=== PATIENT | male | born 1940 | race Caucasian/White ===

== ENCOUNTER 2017-07-05 09:25 | Emergency (ER) | payer MEDICARE, OTHER ==
[~2017-07-05] VITALS: Ht 177.8 cm; Wt 55.4 kg
[~2017-07-05 09:25] MED LIST: ASPIRIN325 MG PO; BABY ASPIRIN81 MG PO; CELEBREX200 MG PO; CYANOCOBALAM1000 MCG IJ; DEPO-MEDROL40 MG/ML IM; DORYX100 MG; DOXYCYCLINE PO; E400400 UNIT OR; FISH OIL1000 M1 PO; LISINOPRIL5 MG PO; MEDDOSEPAK OR; MELOXICAM15 MG PO; MULTIVITAM10 OR; TRIAMCINOLON0.5 % EX; ZOSTAVAX IM; [UNRECOGNIZED DRUG - REMARK] IM; [UNRECOGNIZED DRUG - SUPPLY] IM
[2017-07-05 09:31] VITALS: BP 178/113
[2017-07-05] MEDS ORDERED: AMOXICILLIN500 MG PO (11:21)
== END 2017-07-05 11:52 | disposition home or self-care (01) ==
LOC: ED 09:25
PROC: 0HCQXZZ Extirpation of Matter from Finger Nail, External Approach (ICD-10-PCS; principal; 2017-07-05)
DX: S60.351A Superficial foreign body of right thumb, initial encounter (principal); W23.1XXA Caught, crushed, jammed, or pinched between stationary objects, initial encounter; Y93.89 Activity, other specified; Y92.009 Unspecified place in unspecified non-institutional (private) residence as the place of occurrence of the external cause

== ENCOUNTER → 2018-06-09 | Outpatient (REF) | payer MEDICARE, OTHER ==
[~2018-06-09] MED LIST changes: +AMOXICILLIN500 MG PO
[2018-06-09 13:10] LABS: HEMATOCRIT 40.6 % (39.0-50.0); HEMOGLOBIN 14.5 g/dl (14.0-18.0); IMMATURE GRANULOCYTES 0.3 % (0.0-5.0); MEAN CELL VOLUME 106.6 fL CALC (80.0-100.0); MEAN CORPUSCULAR HGB 38.1 pG CALC (26.0-32.0); MEAN CORPUSCULAR HGB CONC 35.7 g/L CALC (32.0-36.0); NEUT# 1.75 thou/uL (1.82-7.42); RED BLOOD COUNT 3.81 mill/uL (4.70-6.10)
[2018-06-09 13:42] LABS: ALBUMIN 3.9 g/dL (3.2-5.0); ALKALINE PHOSPHATASE 133 u/l (38-126); ANION GAP 13 (6-22 (CALC)); BILIRUBIN, TOTAL 0.9 mg/dL (0.0-1.4); BUN 10 mg/dL (8-23); BUN/CREATININE RATIO 18 (12-20 (CALC)); CARBON DIOXIDE 29 mmol/l (22-30); CHLORIDE 94 mmol/l (95-108); CREATININE 0.6 mg/dL (0.7-1.3); GFR > 60 ML/MIN (>=60 (CALC)); GFR FOR AFR.AMER. > 60 ML/MIN (>=60 (CALC)); POTASSIUM 4.5 mmol/l (3.5-5.1); SGOT/AST 42 u/l (19-48); SODIUM 132 mmol/l (137-146); TOTAL PROTEIN 6.4 g/dL (6.3-8.2)
== END | disposition home or self-care (01) ==
LOC: LAB 12:48
PROVIDERS: ATTEND Internal Medicine
DX: E83.110 Hereditary hemochromatosis (principal); R71.8 Other abnormality of red blood cells

== ENCOUNTER 2020-09-09 09:41 | Emergency (ER) | payer MEDICARE, OTHER ==
[~2020-09-09] VITALS: Ht 177.8 cm; Wt 56.8 kg
[2020-09-09 11:34] LABS: HEMATOCRIT 36.8 % (39.0-50.0); HEMOGLOBIN 12.9 g/dl (14.0-18.0); IMMATURE GRANULOCYTES 0.2 % (0.0-5.0); MEAN CELL VOLUME 105.1 fL CALC (80.0-100.0); MEAN CORPUSCULAR HGB 36.9 pG CALC (26.0-32.0); MEAN CORPUSCULAR HGB CONC 35.1 g/dL CAL (32.0-36.0); NEUT# 3.24 thou/uL (1.82-7.42); RED BLOOD COUNT 3.5 mill/uL (4.70-6.10); RED CELL DISTRI WIDTH 13.2 % (11.5-15.5)
[2020-09-09 11:48] LABS: ALBUMIN 4.4 g/dL (3.2-5.0); ALKALINE PHOSPHATASE 155 u/l (38-126); ANION GAP 12 (6-22 (CALC)); BILIRUBIN, TOTAL 0.8 mg/dL (0.0-1.4); BUN 8 mg/dL (8-23); BUN/CREATININE RATIO 15 (12-20 (CALC)); CARBON DIOXIDE 29 mmol/l (22-30); CHLORIDE 92 mmol/l (95-108); CREATININE 0.5 mg/dL (0.7-1.3); GFR > 60 ML/MIN (>=60 (CALC)); GFR FOR AFR.AMER. > 60 ML/MIN (>=60 (CALC)); POTASSIUM 4.6 mmol/l (3.5-5.1); SGOT/AST 47 u/l (19-48); SODIUM 129 mmol/l (137-146); TOTAL PROTEIN 7.4 g/dL (6.3-8.2)
[2020-09-09 11:55] LABS: ACT PARTIAL THROMBO TIME 29.6 SECONDS (20.0-32.5); PROTHROMBIN TIME 10.1 SECONDS (9.0-12.5)
[2020-09-09 12:31] VITALS: BP 160/123
== END 2020-09-09 12:31 | disposition left against medical advice (07) ==
LOC: ED 09:41
PROVIDERS: Student in an Organized Health Care Education/Training Program
DX: M54.6 Pain in thoracic spine (principal); R23.8 Other skin changes; Z91.19 Patient's noncompliance with other medical treatment and regimen; I10 Essential (primary) hypertension; F17.210 Nicotine dependence, cigarettes, uncomplicated

== ENCOUNTER 2020-12-21 | Inpatient (IN) | payer MEDICARE, OTHER ==
--- NOTE | 2020-12-20 18:20 | NUR ---
PT TO ROOM 6 VIA WHEELCHAIR.
--- NOTE | 2020-12-20 20:03 | NUR ---
JOSE M AT THE BEDSIDE RESTING COMFORTABLY
[2020-12-20 20:18] LABS: HEMOGLOBIN 11.1 g/dl (14.0-18.0); IMMATURE GRANULOCYTES 0.2 % (0.0-5.0); MEAN CELL VOLUME 109.6 fL CALC (80.0-100.0); MEAN CORPUSCULAR HGB 36.9 pG CALC (26.0-32.0); MEAN CORPUSCULAR HGB CONC 33.6 g/dL CAL (32.0-36.0); NEUT# 12.86 thou/uL (1.82-7.42); RED BLOOD COUNT 3.01 mill/uL (4.70-6.10); RED CELL DISTRI WIDTH 14.4 % (11.5-15.5)
[2020-12-20 20:53] LABS: URINE BILIRUBIN - DIPSTICK NEGATIVE (NEGATIVE); URINE BLOOD DIPSTICK NEGATIVE (NEGATIVE); URINE COLOR YELLOW; URINE GLUCOSE - DIPSTICK NEGATIVE (NEGATIVE); URINE KETONE TRACE mg/dL (NEGATIVE); URINE LEUK ESTERASE NEGATIVE (NEGATIVE); URINE PH 6.5 (4.5-8.0); URINE PROTEIN - DIPSTICK NEGATIVE (NEG-TRACE); URINE SPECIFIC GRAVITY 1.025
[2020-12-20 20:54] LABS: URINE NITRITE - DIPSTICK NEGATIVE (Negative)
[2020-12-20 21:12] LABS: ALBUMIN 4.3 g/dL (3.2-5.0); ALKALINE PHOSPHATASE 132 u/l (38-126); ANION GAP 10 (6-22 (CALC)); BUN 21 mg/dL (8-23); BUN/CREATININE RATIO 35 (12-20 (CALC)); CARBON DIOXIDE 33 mmol/l (22-30); CHLORIDE 94 mmol/l (95-108); CREATININE 0.6 mg/dL (0.7-1.3); GFR > 60 ML/MIN (>=60 (CALC)); GFR FOR AFR.AMER. > 60 ML/MIN (>=60 (CALC)); LIPASE 24 u/l (23-300); SGOT/AST 48 u/l (19-48); SODIUM 134 mmol/l (137-146); TOTAL PROTEIN 7.4 g/dL (6.3-8.2)
[2020-12-20 21:14] LABS: POTASSIUM 3.4 mmol/l (3.5-5.1)
[2020-12-20 21:15] LABS: ACT PARTIAL THROMBO TIME 22.7 SECONDS (20.0-32.5); INTERNATIONAL NORMALIZED RATIO 1.1 RATIO (0.7-1.3)
--- NOTE | 2020-12-20 22:08 | NUR ---
PATIENT REPORT GIVEN TO LEI MAKER
--- NOTE | 2020-12-20 23:00 | NUR ---
ADVISED FAMILY OF WAIT TIME.
--- NOTE | 2020-12-21 00:30 | NUR ---
PT UP TO BS TO VOID.
--- NOTE | 2020-12-21 01:17 | NUR ---
REPORT TO LUCILA CALL/MED-SURG. TO FLOOR WITH 02/POCKET MONITOR AND ROCEPHIN INFUSING.
--- NOTE | 2020-12-21 01:18 | NUR ---
TO ROOM 273 VIA STRETCHER. WITH MONITOR/IV ANTIBIOTICS
[2020-12-21 01:22] VITALS: BP 172/101
--- NOTE | 2020-12-21 01:23 | NUR ---
PT ARRIVED TO MED SURG ROOM 273 VIA STRETCHER FROM ER WITH BLEONGINS WITH PT, PT IS HERE FOR WEAKNESS AND FREQUENT FALLS, WHEN ASKED WHAT HE THINKS IS CAUSING THE WEAKNESS AND FALLS PT SAYS THATS WHAT YA'LL NEE TO FIND OUT.20G IV INTACT IN L AC, PT HAS POOR/LIMITED ROM WITH BLE STATES HIS SHOUILDER BLADES HURT HORRIBLY AND HAVE FOR MONTHS, WHEN ASKED IF THEY ARE FROM FALLING HE STATES NO.LUNGS COARS WITH MOIST COUGH NO SPUTUM WITNESSED BU THIS NURSE PT STATES ITS PRODUCTIVE SOMETIMES, PT IS WEARING O2 AT 2L VIA NC WHICH HE WEARS AT HOME WELL PER REPORT; SKIN INTACT BUT SOME ECCHYMOTIC AREAS NOTED TO BUE, NO PRESSURE BREAKDWON NOTED, ORIENTED TO ROOM AND UNIT, CALL MASTERSON WITHIN REACH, SAFETY MEASURES INTRODUCED; INCLUDING NOT GETTING OUT OF BED WITHOUT ASSISTANCE, PT VERBALIZES UNDERSTANDING. WILL CONTINUE TO MONITOR.
--- NOTE | 2020-12-21 02:25 | NUR ---
IV ABT FINISHING, IVF INFUSING ORDERED AND PT MEDICATED FOR C/O SHOULDER BLADE PAIN, REPOSITIONED FOR COMFORT, ALL NEEDED ITEMS WITHIN REACH, WILL CONTINUE TO MONITOR,
[2020-12-21 04:00] VITALS: BP 137/89
--- NOTE | 2020-12-21 04:16 | NUR ---
PT RESTING WITH EYES CLOSED NO S/S OF DISTRESS NOTED, COMFOR MEASURES PROVIDED, WILL CONTINUE TO MONITOR
[2020-12-21 05:41] LABS: HEMATOCRIT 29.6 % (39.0-50.0); HEMOGLOBIN 9.9 g/dl (14.0-18.0); IMMATURE GRANULOCYTES 0.4 % (0.0-5.0); MEAN CORPUSCULAR HGB 36.8 pG CALC (26.0-32.0); MEAN CORPUSCULAR HGB CONC 33.4 g/dL CAL (32.0-36.0); NEUT# 9.05 thou/uL (1.82-7.42); RED BLOOD COUNT 2.69 mill/uL (4.70-6.10); RED CELL DISTRI WIDTH 14.2 % (11.5-15.5)
--- NOTE | 2020-12-21 06:26 | NUR ---
Patient is screened for rehab intervention and PT OT and ST consultsa re recommended
[2020-12-21] MEDS ORDERED: LOSARTAN POTASS50 MG PO (07:20)
[2020-12-21] MEDS ORDERED: DECADRON4 MG PO (07:20)
[2020-12-21] MEDS ORDERED: CYANOCOBAL1000 MCG/M IJ (07:21)
[2020-12-21 07:37] VITALS: BP 151/93
--- NOTE | 2020-12-21 07:45 | NUR ---
ASSESSMENT IS COMPLETED: IV SITE IS FREE FROM REDNESS OR EDEMA. HR IS REG,PULSES ARE STRONG X4, ABD IS SOFT WITH ACTIVE BS. BREATH SOUNDS ARE CLEAR BILATERALLY,TELE MONITOR IN PLACE.
--- NOTE | 2020-12-21 09:20 | NUR ---
DR CHIRINOS INTO VISIT WITH PT
--- NOTE | 2020-12-21 09:23 | NUR ---
Pt screened by BAG PATCHER. Further evaluation recommended if in agreement with medical.
[2020-12-21 10:30] VITALS: BP 142/81
--- NOTE | 2020-12-21 12:10 | NUR ---
PTIS SITTING IN BED WITH NO DISTRESS NOTED.HAS A COUGH.CONTINUE TO OBSERVE AND MONITOR.
[2020-12-21 15:00] VITALS: BP 143/83
--- NOTE | 2020-12-21 16:11 | NUR ---
PT IS VISITING WITH FAMILY. NO DISTRESS NOTED. IV SITE IS FREE FROMREDNESS OR EDEMA.
[2020-12-21 19:00] VITALS: BP 145/89
--- NOTE | 2020-12-21 20:00 | NUR ---
PHYSICAL ASSESMENT COMPLETE. PT CURRENTLY DENIES PAIN OR DISCOMFORT. SCHEDULED MEDICATIONS AND PRN MEDICATION ADMINISTERED, SEE E-MAR. PT DENIES ANY NEEDS AT THIS TIME. PLAN OF CARE REVIEWED, PT DENIES QUESTIONS, VERBALIZES UNDERSTANDING. ITEMS WITHIN REACH, BED LOCKED IN LOW POSITION W/ BEDRAILS UP X2. CALL MASTERSON WITHIN REACH, AGREES TO CALL PRN.
--- NOTE | 2020-12-21 20:04 | NUR ---
PHYSICAL ASSESMENT COMPLETE. PT C/O SOFPAIN PAIN AND DISCOMFORT. SCHEDULED MEDICATIONS AND PRN MEDICATION ADMINISTERED, SEE E-MAR. PT DENIES ANY NEEDS AT THIS TIME. PLAN OF CARE REVIEWED, PT DENIES QUESTIONS, VERBALIZES UNDERSTANDING. ITEMS WITHIN REACH, BED LOCKED IN LOW POSITION W/ BEDRAILS UP X2. CALL MASTERSON WITHIN REACH, AGREES TO CALL PRN.
[2020-12-22] VITALS: BP 149/90
--- NOTE | 2020-12-22 | NUR ---
PT LAYING IN BED WITH EYES CLOSED, APPEARS TO BE SLEEPING, APPEARS COMFORTABLE AND IN NO DISTRESS. RESPIRATIONS REGULAR AND UNLABORED. ITEMS REMAIN WITHIN REACH, CALL MASTERSON REMAINS WITHIN REACH. BED REMAINS LOCKED AND IN LOW POSITION WITH BEDRAILS UP X2. WILL CONTINUE TO MONITOR.
[2020-12-22 04:00] VITALS: BP 168/96
--- NOTE | 2020-12-22 04:53 | NUR ---
PTS BP 168/96. PTS COZAAR ADMINISTERED EARLY. WILL CONTINUE TO MONITOR.
[2020-12-22 05:43] LABS: HEMATOCRIT 29.2 % (39.0-50.0); HEMOGLOBIN 9.6 g/dl (14.0-18.0); MEAN CELL VOLUME 113.2 fL CALC (80.0-100.0); MEAN CORPUSCULAR HGB 37.2 pG CALC (26.0-32.0); MEAN CORPUSCULAR HGB CONC 32.9 g/dL CAL (32.0-36.0); RED BLOOD COUNT 2.58 mill/uL (4.70-6.10); RED CELL DISTRI WIDTH 14.1 % (11.5-15.5)
[2020-12-22 05:56] LABS: BUN 17 mg/dL (8-23); BUN/CREATININE RATIO 32 (12-20 (CALC)); CARBON DIOXIDE 33 mmol/l (22-30); CHLORIDE 99 mmol/l (95-108); CREATININE 0.5 mg/dL (0.7-1.3); GFR > 60 ML/MIN (>=60 (CALC)); GFR FOR AFR.AMER. > 60 ML/MIN (>=60 (CALC)); MAGNESIUM 1.9 mg/dL (1.6-2.3); SODIUM 135 mmol/l (137-146)
[2020-12-22 06:00] LABS: ANION GAP 7 (6-22 (CALC)); POTASSIUM 4.3 mmol/l (3.5-5.1)
--- NOTE | 2020-12-22 07:10 | NUR ---
REPORT RECEIVED FROM LUCILA LEE
[2020-12-22 07:45] VITALS: BP 163/85
--- NOTE | 2020-12-22 08:16 | NUR ---
Pt screened by d/t nutritional assessment positive for difficulties chewing or swallowing. Pt may benefit from a swallow evaluation given shortness of breath and new onset of lung CA.
--- NOTE | 2020-12-22 08:30 | NUR ---
PT OOB RESTING IN RECLINER,A&O X3;VS OBTAINED AND ASSESSMENT COMPLETED;PT REPORTS BILATERAL SHOULDER PAIN RATING 10/10 ON THE PAIN SCALE AND REQUESTS PAIN MEDICATION,PT MEDICATED WITH PRN ULTRAM 50MG PO AT THIS TIME;WHILE ADMINISTERING PAIN MEDICATION IT WAS NOTED THAT PT HAS DIFFICULTY SWALLOWING, MELIA ANRP NOTIFIED;RESPIRATIONS SHALLOW ON O2 @ 2L VIA NC, DIMINISHED LUNG SOUNDS NOTED;ABDOMEN SOFT ON PALPATION AND ACTIVE IN ALL 4 QUADRANTS;WEAK PEDAL PULSES;SKIN INTACT;TELE MONITORING IN PLACE;#20G TO LAC INFUSING NS @ 50ML/HR,SITE APPEARS HEALTHY;PT DENIES ANY ADDITIONAL NEEDS AT THIS TIME AND IS ENCOURAGED TO CALL FOR ASSISTANCE IF NEEDED;FALL PRECAUTIONS IN PLACE WITH CALL LIGHT IN REACH;WILL CONTINUE TO MONITOR
--- NOTE | 2020-12-22 09:44 | NUR ---
AT BEDSIDE DISCUSSING POC.
--- NOTE | 2020-12-22 10:27 | NUR ---
SPEECH AT BEDSIDE.
[2020-12-22 10:52] VITALS: BP 159/93
--- NOTE | 2020-12-22 11:40 | NUR ---
PT RESTING IN SEMI FOWLERS POSITION;RESPIRATIONS REMAIN EVEN AND UNLABORED ON O2 @ 2L VIA NC;PT DENIES ANY CURRENT PAIN OR DISCOMFORTS;TELE MONITORING IN PLACE;IV SITE PATENT;PT DENIES ANY ADDITIONAL NEEDS AND IS ENCOURAGED TO CALL FOR ASSISTANCE IF NEEDED;FALL PRECAUTIONS IN PLACE WITH CALL LIGHT IN REACH;WILL CONTINUE TO MONITOR
--- NOTE | 2020-12-22 13:50 | NUR ---
PT TRANSPORTED TO [facility] IN STABLE CONDITION VIA WHEELCHAIR ACCOMPANIED BY LUCILA HANSON
--- NOTE | 2020-12-22 14:11 | NUR ---
PT RETURNED BACK TO MED/SURG ROOM 273 IN STABLE CONDITION VIA WHEELCHAIR ACCOMPANIED BY LUCILA HANSON
--- NOTE | 2020-12-22 14:20 | NUR ---
PT RESTING IN BED WITH SON AT BEDSIDE;PT REPORTS BACK AND SHOULDER PAIN RATING 3/10 ON THE PAIN SCALE AND REQUESTS PAIN MEDICATION, PT MEDICATED WITH PRN MORPHINE 2MG SLOW IVP AT THIS TIME;PT DENIES ANY ADDITIONAL NEEDS;WILL CONTINUE TO MONITOR
[2020-12-22 15:16] VITALS: BP 138/82
--- NOTE | 2020-12-22 15:40 | NUR ---
PT RESTING IN SEMI FOWLERS POSITION;RESPIRATIONS EVEN AND UNLABORED ON O2 @ 2L VIA NC;PT REPORTS PRN MORPHINE ADMINISTRATION EFFECTIVE;TELE MONITORING IN PLACE;IV SITE PATENT;PT DENIES ANY ADDITIONAL NEEDS AND IS ENCOURAGED TO CALL FOR ASSISTANCE IF NEEDED;FALL PRECAUTIONS REMAIN IN PLACE WITH BED IN THE LOWEST POSITION AND CALL LIGHT IN REACH;WILL CONTINUE TO MONITOR
[2020-12-22 19:45] VITALS: BP 187/97
--- NOTE | 2020-12-22 20:00 | NUR ---
PHYSICAL ASSESMENT COMPLETE. PT PROVIDED MORPHINE FOR PAIN AND DISCOMFORT. SCHEDULED MEDICATIONS AND PRN MEDICATION ADMINISTERED, SEE E-MAR. PT DENIES ANY NEEDS AT THIS TIME. PLAN OF CARE REVIEWED, PT DENIES QUESTIONS, VERBALIZES UNDERSTANDING. ITEMS WITHIN REACH, BED LOCKED IN LOW POSITION W/ BEDRAILS UP X2. CALL MASTERSON WITHIN REACH, AGREES TO CALL PRN.
[2020-12-23 00:20] VITALS: BP 154/94
[2020-12-23 04:00] VITALS: BP 190/99
--- NOTE | 2020-12-23 04:15 | NUR ---
PT REMOVED HIS IV. BLOOD SOAKED THE SHEETS. BEDDING CHANGED, INSERTED NEW IV IN RAC. DATED AND TIMED. PT TOLERATED PROCEDURE WELL.
[2020-12-23 05:10] LABS: HEMATOCRIT 31.4 % (39.0-50.0); HEMOGLOBIN 10.3 g/dl (14.0-18.0); IMMATURE GRANULOCYTES 0.7 % (0.0-5.0); MEAN CELL VOLUME 113.4 fL CALC (80.0-100.0); MEAN CORPUSCULAR HGB 37.2 pG CALC (26.0-32.0); MEAN CORPUSCULAR HGB CONC 32.8 g/dL CAL (32.0-36.0); NEUT# 10.91 thou/uL (1.82-7.42); RED BLOOD COUNT 2.77 mill/uL (4.70-6.10); RED CELL DISTRI WIDTH 13.9 % (11.5-15.5)
[2020-12-23 06:08] LABS: ALBUMIN 3.7 g/dL (3.2-5.0); ALKALINE PHOSPHATASE 113 u/l (38-126); ANION GAP 9 (6-22 (CALC)); BILIRUBIN, TOTAL 0.8 mg/dL (0.0-1.4); BUN 18 mg/dL (8-23); BUN/CREATININE RATIO 36 (12-20 (CALC)); CARBON DIOXIDE 32 mmol/l (22-30); CHLORIDE 100 mmol/l (95-108); CREATININE 0.5 mg/dL (0.7-1.3); GFR > 60 ML/MIN (>=60 (CALC)); GFR FOR AFR.AMER. > 60 ML/MIN (>=60 (CALC)); POTASSIUM 4.2 mmol/l (3.5-5.1); SGOT/AST 35 u/l (19-48); SODIUM 137 mmol/l (137-146); TOTAL PROTEIN 6.4 g/dL (6.3-8.2)
--- NOTE | 2020-12-23 07:10 | NUR ---
REPORT RECEIVED FROM LUCILA LEE
[2020-12-23 07:45] VITALS: BP 178/90
--- NOTE | 2020-12-23 08:30 | NUR ---
PT RESTING IN SEMI FOWLERS POSITION,A&O X3;VS OBTAINED AND ASSESSMENT COMPLETED;PT REPORTS SHOULDER PAIN RATING 7/10 ON THE PAIN SCALE AND REQUESTS PRN PAIN MEDICATION, PT MEDICATED WITH MORPHINE 2MG SLOW IVP AT THIS TIME;RESPIRATIONS SHALLOW ON O2 @ 2L VIA NC, DIMINISHED LUNG SOUNDS AND NON-PRODUCTIVE COUGH;ABDOMEN SOFT ON PALPATION AND ACTIVE IN ALL 4 QUADRANTS;SKIN INTACT;TELE MONITORING IN PLACE;#22G TO RAC INFUSING NS @ 50ML/HR,SITE APPEARS HEALTHY;PT DENIES ANY ADDITIONAL NEEDS AT THIS TIME AND IS ENCOURAGED TO CALL FOR ASSISTANCE IF NEEDED;FALL PRECAUTIONS IN PLACE WITH BED IN THE LOWEST POSITION;PT ENCOURAGED TO CALL FOR ASSISTANCE IF NEEDED;CALL LIGHT IN REACH;WILL CONTINUE TO MONITOR
[2020-12-23 09:02] VITALS: BP 157/87
--- NOTE | 2020-12-23 09:18 | NUR ---
AT BEDSIDE DISCUSSING POC.
--- NOTE | 2020-12-23 11:00 | NUR ---
PT RESTING IN SEMI FOWLERS POSITION WITH SON AT BEDSIDE;RESPIRATIONS EVEN AND UNLABORED ON O2 @ 2L VIA NC;PT DENIES ANY CURRENT PAIN BUT DOES REQUEST A NICOTINE PATCH, PATCH PROVIDED PER REQUEST;TELE MONITORING IN PLACE;IV SITE PATENT INFUSING NS PER ORDER;PT DENIES ANY ADDITIONAL NEEDS AND IS ENCOURAGED TO CALL FOR ASSISTANCE IF NEEDED;CALL LIGHT IN REACH;WILL CONTINUE TO MONITOR
--- NOTE | 2020-12-23 11:10 | NUR ---
PT TRANSPORTED TO RADIOLOGY VIA WHEELCHAIR ACCOMPANIED BY SPEECH THERAPY.
[2020-12-23 11:12] VITALS: BP 159/86
--- NOTE | 2020-12-23 11:30 | NUR ---
PT TRANSPORTED BACK TO MED/SURG ROOM 273 IN STABLE CONDITION ACCOMPANIED BY SPEECH THERAPY.
--- NOTE | 2020-12-23 11:35 | NUR ---
SPOKE WITH DOTTIE FROM [facility], PER DOTTIE A HOSPICE NURSE SHOULD BE OUT TO [facility] AT APPROX 1500 TO SPEAK WITH PT.
--- NOTE | 2020-12-23 12:30 | NUR ---
PT REPORTS SHOULDER PAIN RATING 7/10 ON THE PAIN SCALE AND REQUESTS PAIN MEDICATION. PT MEDICATED WITH PRN MORPHINE 2MG SLOW IVP AT THIS TIME.
--- NOTE | 2020-12-23 12:38 | NUR ---
Called Robbin Billings to discuss patient and modified barium swallow study results. This clinician had a lengthy discussion with patient and patient's son to discuss goals of care, as patient aspirated all consistencies on modified barium swallow study. Patient and patient's son understand and are accepting the risk of aspiration. Patient reported he does not want to eat solid foods that requiring chewing, but would prefer to be on thin liquids vs. thickened liquids. Thin liquids are likely most appropriate for this case, as they are easier to eject from the airway. Medical team in agreement with placing patient on pureed solids and thin liquids. AIR CONDITIONER INSTALLER HELPER will sign off at this time unless further education is needed.
--- NOTE | 2020-12-23 13:49 | NUR ---
PEREZ, HOSPICE NURSE AT BEDSIDE DISCUSSING POC WITH PT AND SON.
--- NOTE | 2020-12-23 14:16 | NUR ---
PT AND SON AGREE TO [facility]. NOTIFIED.AWAITING D/C ORDERS.
[2020-12-23 15:15] VITALS: BP 170/99
--- NOTE | 2020-12-23 16:00 | NUR ---
PT RESTING IN SEMI FOWLERS POSITION WITH SON AT BEDSIDE;RESPIRATIONS LABORED ON O2 @ 2L VIA NC;PT DENIES ANY CURRENT PAIN OR DISCOMFORTS;TELE MONITORING IN PLACE;IV SITE TO RAC INFUSING NS WITH EASE PER ORDER;PT TP BE TRANSPORTED TO [facility] AT [address]OX [address] VIA [facility], PT AND SON VERBALIZE UNDERSTANDING;PT DENIES ANY ADDITIONAL NEEDS AT THIS TIME;ENCOURAGED TO CALL FOR ASSISTANCE IF NEEDED;FALL PRECAUTIONS IN PLACE WITH CALL LIGHT IN REACH;WILL CONTINUE TO MONITOR
--- NOTE | 2020-12-23 16:20 | NUR ---
PT REPORTS SHOULDER PAIN RATING 10/10 ON THE PAIN SCALE AND REQUESTS PAIN MEDICATION, PT MEDICATED WITH MORPHINE 2MG SLOW IVP AT THIS TIME;PT DENIES ANY ADDITIONAL NEEDS;ENCOURAGED TO CALL FOR ASSISTANCE IF NEEDED;CALL LIGHT IN REACH;WILL CONTINUE TO MONITOR
--- NOTE | 2020-12-23 16:59 | NUR ---
Discharge instructions given. Patient verbalizes understanding of same. Discharged in stable condition via Medical Transport to *Other with *Other. All belongings sent with pt. PT TRANSPORTED TO [facility] IN STABLE CONDITION [facility]IA [facility].ALL BELONGINGS LEFT WITH PT SON AND IV TO RAC LEFT IN PLACE PER PEREZ (HOSPICE HOUSE NURSE)
== END 2020-12-23 17:00 | disposition hospice, inpatient (51) | DRG 181 ==
PROVIDERS: Nurse Practitioner; ADMIT Internal Medicine
DX: C34.32 Malignant neoplasm of lower lobe, left bronchus or lung (principal); C34.12 Malignant neoplasm of upper lobe, left bronchus or lung; C79.9 Secondary malignant neoplasm of unspecified site; R22.1 Localized swelling, mass and lump, neck; R53.1 Weakness; M25.561 Pain in right knee; M25.572 Pain in left ankle and joints of left foot; M79.622 Pain in left upper arm; I10 Essential (primary) hypertension; E11.9 Type 2 diabetes mellitus without complications; R09.02 Hypoxemia; E87.6 Hypokalemia; D72.829 Elevated white blood cell count, unspecified; W19.XXXA Unspecified fall, initial encounter; Y92.009 Unspecified place in unspecified non-institutional (private) residence as the place of occurrence of the external cause; Z51.5 Encounter for palliative care; Z91.81 History of falling; Z20.822 Contact with and (suspected) exposure to COVID-19
CPT/HCPCS: J1100; J1650; Q9967